=== PATIENT | male | born 1975 | race Caucasian/White ===

== ENCOUNTER 2018-02-10 22:11 | Emergency (ER) | payer MEDICARE ==
[~2018-02-10] VITALS: Ht 190.5 cm; Wt 81.6 kg
== END 2018-02-10 23:03 | disposition home or self-care (01) ==
LOC: ED 22:11
DX: K40.90 Unilateral inguinal hernia, without obstruction or gangrene, not specified as recurrent (principal); Z87.891 Personal history of nicotine dependence
CPT/HCPCS: 99283